=== PATIENT | female | born 1975 | race African-American/Black ===

== ENCOUNTER 2020-06-23 19:00 | Emergency (ER) | payer BC, SELFPAY ==
[~2020-06-23] VITALS: Ht 167.6 cm; Wt 97.0 kg
[2020-06-23] MEDS ORDERED: LORazepam 1MG TABLET PO ONE (19:30)
[2020-06-23] MEDS ORDERED: LORazepam 1MG TABLET ONE (19:36)
[2020-06-23 19:56] LABS: BASOPHILS % (AUTO) 0 % (0-1); EOSINOPHILS % (AUTO) 1 % (1-7); LYMPHOCYTES % (AUTO) 27 % (22-44); MEAN CORPUSCULAR HEMOGLOBIN 33.2 pg (27.0-34.8); MEAN PLATELET VOLUME 8.3 fL (7.4-10.4); MONOCYTES % (AUTO) 6 % (2-9); NEUTROPHILS % (AUTO) 66 % (42-75); PLATELET COUNT 206 x10^3/uL (130-400); RED BLOOD COUNT 5.18 x10^6/uL (3.82-5.3)
[2020-06-23 19:57] LABS: MD NO
[2020-06-23 20:09] LABS: ALANINE AMINOTRANSFERASE 29 U/L (12-78); ALBUMIN 3.8 g/dL (3.4-5.0); ANION GAP 7 mmol/L (5-15); CALCIUM 8.9 mg/dL (8.5-10.1); CHLORIDE 111 mmol/L (98-107); CREATININE 0.85 mg/dL (0.55-1.02)
[2020-06-23 20:19] LABS: ALKALINE PHOSPHATASE 75 U/L (45-117); BILIRUBIN,TOTAL 0.2 mg/dL (0.2-1.0); TOTAL PROTEIN 7.5 g/dL (6.4-8.2); TROPONIN I < 0.015 ng/mL (0.000-0.045)
[2020-06-23 20:26] VITALS: BP 139/94
== END 2020-06-23 21:02 | disposition home or self-care (01) ==
LOC: ED 20:57
DX: R00.2 Palpitations (principal); F41.1 Generalized anxiety disorder; M62.830 Muscle spasm of back; R00.0 Tachycardia, unspecified; F17.200 Nicotine dependence, unspecified, uncomplicated
CPT/HCPCS: 36415; 71045; 80053; 84443; 84484; 85025; 93005; 99285